=== PATIENT | male | born 1990 ===

== ENCOUNTER 2022-08-08 23:50 | Emergency (ER) | payer SELFPAY ==
[2022-08-08 23:59] VITALS: BMI 25.0
[2022-08-09] MEDS ORDERED: SODIUM CHLORIDE 1,000 ML IV ONE (00:09)
[2022-08-09 01:30] LABS: HEMATOCRIT 42.9 % (35.4-49); HEMOGLOBIN 15.3 GM/dL (11.7-16.9); MCH 29.9 pg (25.7-33.7); MCHC 35.6 g/dl (32.0-35.9); MEAN CELL VOLUME 83.9 fl (80-96); MEAN PLT VOLUME 8.8 fl (7.5-11.1); PLATELET COUNT 233 10^3/uL (134-434); RBC 5.12 M/mm3 (4.00-5.60); RDW 12.6 % (11.9-15.9); WHITE BLOOD COUNT 5.6 K/mm3 (4.0-10.0)
[2022-08-09 01:33] LABS: EPI CELLS 0 /uL (0-25.1); HYALINE CASTS 0 /uL (0-3.1); PH,URINE 6.5 (5.0-8.0); URINE APPEARANCE CLEAR; URINE BACTERIA 2 /uL (0-1359); URINE BILIRUBIN NEGATIVE (NEGATIVE); URINE COLOR YELLOW; URINE GLUCOSE (UA) NEGATIVE (NEGATIVE); URINE KETONE NEGATIVE (NEGATIVE); URINE LEUK ESTERASE NEGATIVE (NEGATIVE); URINE NITRITE NEGATIVE (NEGATIVE); URINE PROTEIN NEGATIVE (NEGATIVE); URINE RBC 15 /uL (0-23.9); URINE UROBILINOGEN 0.2 mg/dL (0.2-1.0); URINE WBC 1 /uL (0-25.8)
[2022-08-09 02:11] LABS: CALCIUM 9.2 mg/dL (8.5-10.1)
[2022-08-09 02:12] LABS: BLOOD UREA NITROGEN 11.9 mg/dL (7-18)
[2022-08-09 02:16] LABS: BILIRUBIN,TOTAL 0.8 mg/dL (0.2-1); TOT PROT 7.4 g/dl (6.4-8.2)
[2022-08-09 05:35] VITALS: BP 101/69; PULSE 60; RESP 16; TEMP 97.9
== END 2022-08-09 06:53 | disposition home or self-care (01) ==
LOC: FER 23:50
PROC: 3E0337Z Introduction of Electrolytic and Water Balance Substance into Peripheral Vein, Percutaneous Approach (ICD-10-PCS; principal; 2022-08-08)
DX: K80.20 Calculus of gallbladder without cholecystitis without obstruction (principal)
CPT/HCPCS: 36415; 74177-TC; 76705-TC; 80053; 81003; 85027; 99285-25; Q9967

== ENCOUNTER 2022-08-14 22:03 | Emergency (ER) | payer SELFPAY ==
[2022-08-14 22:10] VITALS: BP 119/84; PULSE 62; RESP 16; TEMP 97.6; BMI 25.0
[2022-08-14] MEDS ORDERED: TETRACAINE 0.5% OPHTH SOLN 2 ML BOTTLE ONE (22:38)
[2022-08-14] MEDS ORDERED: FLUORESCEIN NA 1 EA STRIP ONE (22:38)
[2022-08-14] MEDS ORDERED: ACETAMINOPHEN 500 MG TABLET (FP) ONE (22:47)
[2022-08-14] MEDS ORDERED: ACETAMINOPHEN 500 MG TABLET (FP) PO ONE (22:47)
== END 2022-08-14 23:47 | disposition home or self-care (01) ==
LOC: FER 22:03
DX: S06.0X0A Concussion without loss of consciousness, initial encounter (principal); S00.83XA Contusion of other part of head, initial encounter; W21.02XA Struck by soccer ball, initial encounter
CPT/HCPCS: 70486-TC; 99284-25